=== PATIENT | female | born 1960 | race Caucasian/White ===

== ENCOUNTER 2021-07-08 13:19 | Outpatient (CLI) | payer OTHER ==
--- NOTE | 2021-07-08 17:04 | XRAY Report ---
PROCEDURE: Wrist 3 View LT INDICATIONS: L WRIST PX TECHNIQUE: 3 views of the wrist were acquired. COMPARISON: None. FINDINGS: Bones: Osseous fragment at the dorsal aspect posterior to the distal carpal row seen on the lateral p rojection. Irregularity at the ulnar styloid. No dislocation. No suspicious bony lesions. Soft tissues: No suspicious soft tissue calcifications. IMPRESSION: Osseous fragment at the dorsal aspect of the distal right wrist. This is most consistent with a fract ure fragment. Suspect ulnar styloid fracture. Consider CT of the wrist for further characterization. Reviewed by: Oneal Garay MD on 07/08/2021 4:03 PM DILIP Approved by: Oneal Garay MD on 07/08/2021 4:03 PM DILIP Station ID: [id number]
== END 2021-07-08 13:20 ==
LOC: DI.N 13:19
PROVIDERS: ATTEND Family Medicine
DX: M25.532 Pain in left wrist (principal)

== ENCOUNTER 2021-07-23 13:24 | Outpatient (CLI) | payer OTHER ==
--- NOTE | 2021-07-23 15:07 | XRAY Report ---
PROCEDURE: Wrist 3 View LT INDICATIONS: L WRIST PX TECHNIQUE: 3 views of the wrist were acquired. COMPARISON: Wrist x-ray 07/08/2021 FINDINGS: Bones: Previously noted fracture fragment posterior and dorsal to the piece of foreign remains presen t although less prominent possibly secondary to patient positioning. Suspected appearance on the styl oid fracture is also stable. No suspicious bony lesions. Soft tissues: No suspicious soft tissue calcifications. IMPRESSION: Stable appearance of suspected ulnar styloid fracture. Less prominent appearance of osseous fragment at the dorsal risk as above suspicious for fracture fra gment versus positioning. As clinically indicated, continued x-ray follow-up or CT is recommended. Reviewed by: Teri Malone MD on 07/23/2021 3:05 PM PDT Approved by: Teri Malone MD on 07/23/2021 3:05 PM PDT Station ID: [id number]
== END 2021-07-23 13:25 ==
LOC: DI.N 13:24
PROVIDERS: ATTEND Physician Assistant
DX: M25.532 Pain in left wrist (principal)

== ENCOUNTER 2023-01-08 10:53 | Outpatient (CLI) | payer OTHER ==
--- NOTE | 2023-01-09 10:34 | Ultrasound Report ---
LIMITED ULTRASOUND OF LEFT BREAST: 01/08/2023 CLINICAL: Patient returns today to evaluate a focal asymmetry in the left breast. Comparison is made to exams dated: 01/08/2023 mammogram, 11/14/2022 mammogram, and 07/22/2008 mammogram - [facility]. Ultrasound of the left breast 3 o'clock region was performed. Davis scale images of the real-time exa mination were reviewed. There is a benign area of fibroglandular tissue in the left breast at 3 o'clock middle depth. No abn ormality is seen corresponding with the mammographic abnormality. IMPRESSION: BENIGN There is no sonographic evidence of malignancy. Return to annual mammogram screening schedule is recommended. This exam was interpreted at Station ID: [id number]. Electronically Signed By: Isael Flynn M.D. acr/:01/08/2023 11:52:52 Ultrasound BI-RADS: 2 Benign BI-RADS CATEGORY: (2) - 2 Mammogram [id number] return to screening LATERALITY: (B)
--- NOTE | 2023-01-09 10:34 | Mammography Report ---
UNILATERAL LEFT DIGITAL DIAGNOSTIC MAMMOGRAM 3D/2D WITH SPOT COMPRESSION: 01/08/2023 CLINICAL: Patient returns today to evaluate an asymmetry in the left breast. Comparison is made to exams dated: 07/22/2008 mammogram and 11/14/2022 mammogram - [facility]. The left breast is heterogeneously dense, which may obscure small masses (category c / 51-75% glandul ar tissue). There is a possible oval equal density asymmetry in the left breast middle depth lateral region seen on the craniocaudal view only. This is less prominent. No other significant masses or calcifications are seen in the breast. IMPRESSION: INCOMPLETE: NEEDS ADDITIONAL IMAGING EVALUATION The possible oval equal density asymmetry in the left breast is indeterminate. An ultrasound is kailey mmended. US will be performed and dictated separately. Based on the Tyrer Cuzick model (a risk assessment model) the patients lifetime risk is 16.2% and he r 10 year risk is 7.7%. According to the ACR, ACS, and NCCN guidelines, an annual breast MRI exam jus ng with mammogram is recommended if the patients lifetime risk is 20% or greater. This exam was interpreted at Station ID: [id number]. NOTE: For mammograms, a report in lay terms will be sent to the patient. Approximately 15% of breast malignancies will not be visualized mammographically. In the management of a palpable breast mass, a negative mammogram must not discourage biopsy of a clinically suspicious lesion. Electronically Signed By: Isael Flynn M.D. acr/:01/08/2023 11:50:42 ACR BI-RADS Category 0: Incomplete 3340F PARENCHYMAL PATTERN: (D) - The breast(s) demonstrate(s) heterogeneously dense fibroglandular kiko dee. BI-RADS CATEGORY: (0) - 0 Ultrasound [id number] Immediate follow-up LATERALITY: (L)
== END 2023-01-08 10:54 | disposition home or self-care (01) ==
LOC: DI 10:53
PROVIDERS: ATTEND Student in an Organized Health Care Education/Training Program
DX: R92.2 Inconclusive mammogram (principal)